=== PATIENT | male | born 1960 | race Caucasian/White ===

== ENCOUNTER 2017-12-09 15:01 | Emergency (ER) | payer OTHER ==
[2017-12-09 15:27] VITALS: BP 162/100; PULSE 74; TEMP 98.1; BMI 25.0
--- NOTE | 2017-12-09 15:34 | PDOC ---
History of Present Illness - General Chief Complaint: Seizure Stated Complaint: Seizure Time Seen by Provider: 12/09/17 15:22 History Source: Patient Exam Limitations: Language Barrier (Macedonian speaking only. Used telephone solutions consultant. ) Past History - Past Medical History Allergies/Adverse Reactions: Allergies Allergy/AdvReac Type Severity Reaction Status Date / Time No Allergy Information Allergy Verified 03/08/16 10:57 Available Home Medications: Ambulatory Orders Aspirin [ASA -] 81 mg PO DAILY 03/10/16 Pantoprazole Sodium [Protonix] 40 mg PO DAILY 03/10/16 Albuterol Sulfate Inhaler - [Ventolin HFA Inhaler -] 2 puff IH Q4H PRN #1 inhaler 03/12/16 Atorvastatin Ca [Lipitor] 40 mg PO HS #30 tablet 03/12/16 Carbamazepine [Tegretol -] 100 mg PO BID #14 tab.chew 03/12/16 Lisinopril 10 mg PO DAILY #30 tablet 03/12/16 Metoprolol Succinate [Toprol XL -] 25 mg PO DAILY #30 tab.sr.24h 03/12/16 Zolpidem Tartrate [Ambien] 5 mg PO HS PRN #30 tablet MDD 5 03/12/16 levETIRAcetam [Keppra -] 1,000 mg PO BID #120 tablet 03/12/16 Cardiac Disorders: Yes ([place]) Diabetes: Yes HTN: Yes - Suicide/Smoking/Psychosocial Hx Smoking History: Unknown if ever smoked Have you smoked in the past 12 months: Yes Number of Cigarettes Smoked Daily: 20 'Breaking Loose' booklet given: 03/08/16 Hx Alcohol Use: Yes Drug/Substance Use Hx: No Substance Use Type: None Hx Substance Use Treatment: No *Physical Exam - Vital Signs Last Vital Signs Temp Pulse Resp BP Pulse Ox 98.1 F 74 20 162/100 100 12/09/17 15:22 12/09/17 15:22 12/09/17 15:22 12/09/17 15:22 12/09/17 15:22 ED Treatment Course - LABORATORY CBC & Chemistry Diagram: 12/09/17 16:30 12/09/17 16:30 *DC/Admit/Observation/Transfer Diagnosis at time of Disposition: Seizure-like activity - Discharge Dispostion Disposition: HOME Condition at time of disposition: Good Decision to Admit order: No - Referrals Referrals: Heidi Rich MD [Primary Care Provider] - - Patient Instructions Printed Discharge Instructions: DI for Seizure Disorder -- Adult Additional Instructions: Mar anlisis de anuja y tomografa computarizada fueron normales hoy. He adjuntado zafar copia de angel resultados a denisse paquete. Por favor, amarilys un seguimiento con mar mdico de atencin primaria dentro de los prximos 2-3 beltran. Tendr que llamar para hacer zafar erna. El nmero est incluido en denisse paquete. Vaya al departamento de emergencias ms cercano si angel sntomas empeoran o si siente que necesita zafar evaluacin de emergencia adicional. Print Language: WALLISIAN - Post Discharge Activity
--- NOTE | 2017-12-09 15:42 | PDOC ---
Attending Attestation - Resident Resident Name: Micheal Simons - ED Attending Attestation I have performed the following: I have examined & evaluated the patient, The case was reviewed & discussed with the resident, I agree w/resident's findings & plan - HPI HPI: 12/09/17 18:37 Veradejesus 57 YOM w/history of seizure on keppra, PPM, DM2, HTN, HLD, CAD Presenting with witnessed seizure activity from [facility], no postictal state. denies precipitating factors. no fever or chills or signs of infection or prodrome. information provided via [employer] watch repairer in belarusian. - Physicial Exam PE: 12/09/17 18:37 NAD, well appearing, MMM, nl conjunctiva, anicteric; neck supple. left chest wall PPM. lungs clear, RRR, abdomen soft nontender. COREAS x4, no focal neuro deficits. No peripheral edema. normal color for ethnicity, WWP. 12/09/17 18:37 - Medical Decision Making 12/09/17 16:10 Veradejesus 57 YOM w/history of seizure on keppra, PPM, DM2, HTN, HLD, CAD Presenting with witnessed seizure activity from [facility], no postictal state. denies precipitating factors. no fever or chills or signs of infection or prodrome. information provided via [employer] watch repairer in belarusian. ED course: Witnessed brief seizure like activity x 5 seconds by resident, no postictal state or incontinence or tongue biting. With prior admissions recently at [facility] for similar presentations. Vital signs reviewed, wnl. back at baseline Prior notes reviewed, including admissions, discharges and consultations. laboratory results and imaging reviewed, basic labs and lytes wnl, notable for neg UA for infection. alcohol level negative, doubt withdrawals w/o vital sign derangements. no cp or sob, no respiratory distress. Trop neg x1, reassuring. doubt ACS with presentation and no active cp. EKG atrial sensed/V paced pattern, no interval abnormalities, narrow QRS, ST and T wave segments and morphology normal. Nonspecific T wave abnormalities in lateral leads., occasional PVC. CT head neg for pathology, microvascular changes present, no bleed or CVA. pt eager for discharge, requesting food, which he tolerated. remains well, VS wnl. Dispo: Pt informed of my clinical impression, treatment recommendations and disposition plan. All questions answered to patient's satisfaction and expressed understanding and comfort with this. Reasons for returning to the ED sooner discussed with the patient otherwise, follow up with primary care physician. At the time of discharge, the patient is alert, clinically improved, back at baseline status, no complaints. tolerating po and verbalizes understanding of instructions. information provided in belarusian. 12/09/17 18:31 12/09/17 18:36 12/09/17 18:37 Heart Score/ECG Review - ECG Impressions Comment:: 12/09/17 18:38 EKG atrial sensed/V paced pattern, no interval abnormalities, narrow QRS, ST and T wave segments and morphology normal. Nonspecific T wave abnormalities in lateral leads., occasional PVC.
[2017-12-09 16:53] LABS: BASO % 0.9 % (0-2.0); EOS % 3.3 % (0-4.5); HEMATOCRIT 42.9 % (35.4-49); HEMOGLOBIN 14.5 GM/dL (11.7-16.9); LYMPH % 17.1 % (8-40); MCH 30.5 pg (25.7-33.7); MCHC 33.7 g/dl (32.0-35.9); MEAN CELL VOLUME 90.6 fl (80-96); MEAN PLT VOLUME 8.5 fl (7.5-11.1); MONO % 7.9 % (3.8-10.2); NEUT % 70.8 % (42.8-82.8); PLATELET COUNT 195 K/MM3 (134-434); RBC 4.74 M/mm3 (4.00-5.60); RDW 14.1 % (11.9-15.9); WHITE BLOOD COUNT 5.9 K/mm3 (4.0-10.0)
[2017-12-09 16:54] LABS: URINE APPEARANCE CLEAR; URINE BILIRUBIN NEGATIVE (<2.0 mg/dL); URINE COLOR YELLOW; URINE GLUCOSE (UA) NEGATIVE (NEGATIVE); URINE KETONE NEGATIVE (NEGATIVE); URINE LEUK ESTERASE NEGATIVE (NEGATIVE); URINE NITRITE NEGATIVE (NEGATIVE); URINE PROTEIN NEGATIVE (NEGATIVE); URINE UROBILINOGEN NEGATIVE mg/dL (0.2-1.0)
[2017-12-09 17:27] LABS: ALBUMIN 3.6 g/dl (3.4-5.0); ALK PHOS 71 U/L (45-117); ANION GAP 7 MMOL/L (8-16); BILIRUBIN,TOTAL 0.3 mg/dL (0.2-1); BLOOD UREA NITROGEN 12 mg/dL (7-18); CALCIUM 8.8 mg/dL (8.5-10.1); CHLORIDE 109 mmol/L (98-107); CO2 25 mmol/L (21-32); CREATININE 0.7 mg/dL (0.55-1.3); GLUCOSE,RANDOM 108 mg/dL (74-106); POTASSIUM 4.1 mmol/L (3.5-5.1); SGOT/AST 14 U/L (15-37); SGPT/ALT 26 U/L (13-61); SODIUM 141 mmol/L (136-145); TOT PROT 6.9 g/dl (6.4-8.2)
--- NOTE | 2017-12-10 09:35 | EKG ---
Test Reason : Blood Pressure : / mmHG Vent. Rate : 072 BPM Atrial Rate : 072 BPM P-R Int : 146 ms QRS Dur : 132 ms QT Int : 414 ms P-R-T Axes : 008 248 072 degrees QTc Int : 453 ms Atrial-sensed ventricular-paced rhythm WITH OCCASIONAL PREMATURE VENTRICULAR COMPLEXES Biventricular pacemaker detected ABNORMAL ECG WHEN COMPARED WITH ECG OF 08-MAR-2016 16:58, ELECTRONIC VENTRICULAR PACEMAKER HAS REPLACED SINUS RHYTHM Confirmed by BHAVIN GUALLPA, WILMAR ([id number]) on 12/10/2017 9:35:40 AM Referred By: Confirmed By:WILMAR DELCID MD
== END 2017-12-09 18:45 | disposition home or self-care (01) ==
LOC: JER 15:01
DX: G40.89 Other seizures (principal); E11.9 Type 2 diabetes mellitus without complications; I10 Essential (primary) hypertension; Z87.891 Personal history of nicotine dependence
CPT/HCPCS: 36415; 70450-TC; 80053; 80307; 81003; 82550; 82962; 83605; 83690; 84484; 85025; 87086; 93005; 93010; 99283-25